=== PATIENT | female | born 1980 | race Caucasian/White ===

== ENCOUNTER 2018-02-25 17:09 | Emergency (ER) | payer OTHER ==
[~2018-02-25] VITALS: Ht 172 cm; Wt 95.0 kg
[~2018-02-25 17:09] MED LIST: DARVOCET N-100100 - OR; INDOCIN SR75 MG OR; KLONOPIN1 MG OR; LAMICTAL150 MG OR; WELLBUTRIN150 MG OR; Z PACK
[2018-02-25] MEDS ORDERED: BACTRIM DS1 TAB PO (17:35)
[2018-02-25 17:41] VITALS: BP 128/78
== END 2018-02-25 17:41 | disposition home or self-care (01) | DRG 950 ==
LOC: ED 17:09
DX: S61.211D Laceration without foreign body of left index finger without damage to nail, subsequent encounter (principal); X58.XXXD Exposure to other specified factors, subsequent encounter